=== PATIENT | female | born 1965 | race Caucasian/White ===

== ENCOUNTER 2021-12-20 19:25 | Emergency (ER) | payer OTHER ==
[~2021-12-20] VITALS: Ht 162.6 cm; Wt 113.4 kg
[~2021-12-20 19:25] MED LIST: CATAPRES0.1 MG PO; EUTHYROX125 MCG PO; GLIP2.5ER PO; IBUP800 PO; OMEP20ER PO; RYBELSUS3 MG PO; Robaxin750 MG
[2021-12-20] MEDS ORDERED: TOPROL XL50 M1 (19:56)
[2021-12-20] MEDS ORDERED: ATORVASTATIN CA20 MG (19:57)
[2021-12-20] MEDS ORDERED: ESCI10 PO (19:59)
[2021-12-20] MEDS ORDERED: Aspirin EC81 MG PO (23:07)
== END 2021-12-20 23:08 | disposition home or self-care (01) ==
LOC: ER 19:25
DX: R07.9 Chest pain, unspecified (principal); J44.9 Chronic obstructive pulmonary disease, unspecified; I12.9 Hypertensive chronic kidney disease with stage 1 through stage 4 chronic kidney disease, or unspecified chronic kidney disease; E11.22 Type 2 diabetes mellitus with diabetic chronic kidney disease; N18.9 Chronic kidney disease, unspecified; E03.9 Hypothyroidism, unspecified; F15.10 Other stimulant abuse, uncomplicated; Z72.0 Tobacco use; Z59.00 Homelessness unspecified; Z88.0 Allergy status to penicillin; Z88.2 Allergy status to sulfonamides; Z79.84 Long term (current) use of oral hypoglycemic drugs; Z79.899 Other long term (current) drug therapy
CPT/HCPCS: 84484; 93005; 93010; 99284-25